=== PATIENT | male | born 1995 | race African-American/Black ===

== ENCOUNTER 2019-08-01 17:48 | Emergency (ER) | payer SELFPAY ==
[2019-08-01] MEDS ORDERED: Morphine 4 MG/ML VIAL ONE (18:13)
[2019-08-01] MEDS ORDERED: Ketorolac Tromethamine 30 MG/ML VIAL ONE (18:13)
[2019-08-01] MEDS ORDERED: Ondansetron PF 4 MG/2 ML Vial ONE (18:15)
[2019-08-01 18:28] LABS: #Basophils 0.1 thou/uL (0.0-0.2); #Eosinphils 0.1 thou/uL (0.0-0.7); #Lymphocytes 3.8 thou/uL (1.20-3.40); #Monocytes 0.7 thou/uL (0.11-0.59); #Neutrophils 4.1 thou/uL (1.40-6.50); %Basophils 0.9 % (0.0-1.0); %Lymphocytes 43.5 % (21.0-51.0); %Monocytes 8.4 % (0.0-10.0); %Neutrophils 46.3 % (42.0-75.0); Hemoglobin 14.3 g/dL (14.0-18.0); Mean Corpuscular Hemoglobin 30.3 pg (27.0-31.0); Mean Corpuscular Volume 86.7 fL (78.0-98.0); Mean Platelet Volume 8.7 fL (7.4-10.4); Platelet Count 275 thou/uL (130-400); RBC Distribution Width 11.5 % (11.5-14.5); Red Blood Cell (RBC) Count 4.72 mill/uL (4.70-6.10); White Blood Cell (WBC) Count 8.8 thou/uL (4.8-10.8)
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
[2019-08-01 18:54] LABS: ALT (SGPT) 25 U/L (8-55); AST (SGOT) 16 U/L (5-34); Albumin 4.5 g/dL (3.5-5.0); Alkaline Phosphatase 58 U/L (40-110); Anion Gap 15 mmol/L (10-20); BUN (Urea Nitrogen) 10 mg/dL (8.9-20.6); Bilirubin, Total 0.5 mg/dL (0.2-1.2); Calc. Creatinine Clearance 0 mL/min (70-130); Calcium 10.2 mg/dL (7.8-10.44); Carbon Dioxide 23 mmol/L (22-29); Chloride 101 mmol/L (98-107); Estimated GFR-MDRD 90; Globulin 3.3 g/dL (2.4-3.5); Glucose 312 mg/dL (70-105); Protein, Total 7.8 g/dL (6.0-8.3); Sodium 135 mmol/L (136-145)
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
--- NOTE | 2019-08-01 19:10 | RAD ---
Radiograph left shoulder 3 views: HISTORY: 23-year-old male with left shoulder pain FINDINGS: The glenohumeral joint is abducted. According to the nanotechnologist, patient is unable to abduc t the shoulder. Joint spaces are maintained without erosions or large osteophytes. No destructive osseous lesion. No fracture. No soft tissue calcifications. IMPRESSION: 1. Shoulder held in abduction. 2. Otherwise normal.
--- NOTE | 2019-08-01 19:11 | RAD ---
RADIOGRAPH CHEST 1 VIEW: DATE: 08/01/2019 HISTORY: 23-year-old male with abdominal pain FINDINGS: The visualized lung hemphill are clear. The cardiomediastinal silhouette and hilar shadows are normal. The lateral costophrenic angles are sharp. The osseous structures appear normal. There is no pneumothorax. IMPRESSION: Negative.
[2019-08-01] MEDS ORDERED: ISOVUE-370 76%-LOCM 1 ML ONE (20:47)
[2019-08-01] MEDS ORDERED: Lorazepam 2 MG/ML VIAL ONE (21:23)
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
== END 2019-08-02 00:02 | disposition home or self-care (01) ==
LOC: ERS 17:48
DX: S06.0X0A Concussion without loss of consciousness, initial encounter (principal); F32.9 Major depressive disorder, single episode, unspecified; Z87.891 Personal history of nicotine dependence; V49.9XXA Car occupant (driver) (passenger) injured in unspecified traffic accident, initial encounter
CPT/HCPCS: 70450; 71045; 72125; 72141; 74177; 80053; 85025; 96361; 96374; 96375; J1885; J2060; J2270; J2405; Q9966